=== PATIENT | male | born 1995 | race Two or more races ===

== ENCOUNTER 2022-03-17 23:36 | Emergency (ER) | payer MEDICAID ==
[~2022-03-17] VITALS: Ht 170.2 cm; Wt 114.0 kg
[2022-03-17] MEDS ORDERED: NO HOME MEDS (23:59)
[2022-03-18] MEDS ORDERED: ondansetron/PF 4mg/2ml inj IV ONE (00:05)
[2022-03-18] MEDS ORDERED: morphine 4 MG/ML inj SYRINge IV ONE ×2 (00:05→01:40)
[2022-03-18] MEDS ORDERED: normal saline 1000ML IV soln IVB ONE ×2 (00:05→02:40)
[2022-03-18 00:33] LABS: BASOPHILS # (AUTO) 0.1 X10'3 (0-0.2); BASOPHILS % (AUTO) 0.4 % (0-1); EOSINOPHILS # (AUTO) 0.2 X10'3 (0-0.9); HEMATOCRIT 41.9 % (42.0-52.0); LYMPHOCYTES # (AUTO) 3.6 X10'3 (1.1-4.8); LYMPHOCYTES % (AUTO) 24.3 % (21-51); MEAN CORPUSCULAR HEMOGLOBIN 29.1 PG (27.0-31.0); MEAN CORPUSCULAR HGB CONC 33.5 g/dL (33.0-36.5); MEAN CORPUSCULAR VOLUME 86.9 FL (78-98); MEAN PLATELET VOLUME 9.5 FL (7.4-10.4); MONOCYTES # (AUTO) 1.2 X10'3 (0-0.9); NEUTROPHILS # (AUTO) 9.9 X10'3 (1.8-7.7); NEUTROPHILS % (AUTO) 66.3 % (42-75); PLATELET COUNT 287 X10'3 (140-440); RED BLOOD COUNT 4.82 X10'6 (4.70-6.10); RED CELL DISTRIBUTION WIDTH 14.3 % (11.5-14.5); WHITE BLOOD COUNT 14.9 X10'3 (4.5-11.0)
[2022-03-18] MEDS ORDERED: iohexol 350MG/ML 100ml bottle IV ONE (00:37)
[2022-03-18 01:29] LABS: ALANINE AMINOTRANSFERASE 87 U/L (12-78); ALBUMIN/GLOBULIN RATIO 1.1 (1.1-1.5); ALKALINE PHOSPHATASE 128 IU/L (46-116); ANION GAP 12 (8-16); ASPARTATE AMINO TRANSFERASE 21 U/L (10-37); BILIRUBIN,TOTAL 0.4 MG/DL (0.1-1.0); BLOOD UREA NITROGEN 16 MG/DL (7-18); BUN/CREATININE RATIO 15.2 (5.4-32.0); CALCIUM 8.4 MG/DL (8.5-10.1); CHLORIDE 107 MMOL/L (99-107); CREATININE 1.05 MG/DL (0.60-1.10); GLUCOSE 105 MG/DL (70-104); LIPASE 105 U/L (73-393); POTASSIUM 3.8 MMOL/L (3.5-5.1); SODIUM 143 MMOL/L (135-145); TOTAL CARBON DIOXIDE 23.6 MMOL/L (24-32); TOTAL PROTEIN 7.8 G/DL (6.4-8.2); eGFR 85 ML/MIN
[2022-03-18] MEDS ORDERED: ketorolac tromethamine 15mg/ml inj. IV ONE (02:40)
[2022-03-18] MEDS ORDERED: ketorolac trometh. 30mg/ml inj. IV ONE (04:15)
[2022-03-18] MEDS ORDERED: tamsulosin 0.4mg capsule PO ONE (04:40)
[2022-03-18] MEDS ORDERED: tamsulosin 0.4mg capsule PO SCH ×2 (04:40→21:00)
[2022-03-18 05:08] LABS: CLARITY,URINE CLEAR (Clear); COLOR,URINE YELLOW (Yellow); GLUCOSE, URINE NEGATIVE (Neg); KETONES,URINE TRACE mg/dl (Neg); LEUKOCYTE ESTERASE ,URINE NEGATIVE (Neg); NITRITES, URINE NEGATIVE (Neg); OCCULT BLOOD,URINE MODERATE (Neg); PROTEIN,URINE NEGATIVE (Neg); UROBILINOGEN,URINE 0.2 E.U/dL (0.2-1.0)
[2022-03-18 05:18] LABS: UA COLLECTION TYPE CLN CATCH MIDSTREAM
[2022-03-18 05:36] LABS: BACTERIA,URINE NONE SEEN /HPF (Neg); RBC,URINE 0-2 /HPF (0-2); SQUAMOUS EPITHELIAL CELL,UR FEW /LPF (FEW); WBC,URINE 0-4 /HPF (0-4)
[2022-03-18 05:37] LABS: MUCUS STRANDS MODERATE /LPF (Neg)
[2022-03-18] MEDS ORDERED: HYDR-3965 PO ×2 (06:06)
[2022-03-18] MEDS ORDERED: FLO0.4C PO ×2 (06:06)
[2022-03-18 06:10] VITALS: BP 118/63
[2022-03-19] MEDS ORDERED: NO HOME MEDS (20:42)
== END 2022-03-18 06:12 | disposition home or self-care (01) ==
LOC: ER 23:38
DX: N20.0 Calculus of kidney (principal); F12.90 Cannabis use, unspecified, uncomplicated
CPT/HCPCS: 36415; 74177; 80053; 81001; 83690; 85025; 96361; 96374; 96375; 96376; 99285; J1885; J2270; J2405; J3490; J7030; Q9967

== ENCOUNTER 2022-03-19 10:01 | Inpatient (IN) | payer MEDICAID ==
[~2022-03-19] VITALS: Ht 172.7 cm; Wt 113.0 kg
[~2022-03-19 10:01] MED LIST: FLO0.4C PO; HYDR-3965 PO; NO HOME MEDS
[2022-03-19] MEDS ORDERED: morphine 4 MG/ML inj SYRINge IV ONE ×2 (11:35→12:13)
[2022-03-19] MEDS ORDERED: ondansetron/PF 4mg/2ml inj IV ONE (11:35)
[2022-03-19] MEDS ORDERED: normal saline 1000ml 1,000 ML IV ONE (11:35)
--- NOTE | 2022-03-19 12:05 | NUR ---
SPOKE WITH CROWN AND BRIDGE TECHNICIAN DERRICK REGARDING PT CONTINUES TO REPORT 10/10 PAIN WITH NO RELIEF. VERBAL ORDER RECEIVED FOR ADDITIONAL MORPHINE 4MG IV PUSH X1 DOSE. ORDER PLACED RECEIVED
[2022-03-19 12:45] LABS: RED BLOOD COUNT 4.89 X10'6 (4.70-6.10)
[2022-03-19 12:46] LABS: BASOPHILS % (AUTO) 0.2 % (0-1); EOSINOPHILS % (AUTO) 0.2 % (0-6); HEMATOCRIT 42.4 % (42.0-52.0); LYMPHOCYTES # (AUTO) 1.4 X10'3 (1.1-4.8); LYMPHOCYTES % (AUTO) 13.2 % (21-51); MEAN CORPUSCULAR HEMOGLOBIN 28.7 PG (27.0-31.0); MEAN CORPUSCULAR VOLUME 86.8 FL (78-98); MEAN PLATELET VOLUME 10.1 FL (7.4-10.4); MONOCYTES # (AUTO) 0.7 X10'3 (0-0.9); MONOCYTES % (AUTO) 6.6 % (2-12); NEUTROPHILS # (AUTO) 8.4 X10'3 (1.8-7.7); NEUTROPHILS % (AUTO) 79.8 % (42-75); PLATELET COUNT 270 X10'3 (140-440); RED CELL DISTRIBUTION WIDTH 14.7 % (11.5-14.5); WHITE BLOOD COUNT 10.6 X10'3 (4.5-11.0)
[2022-03-19 12:48] LABS: ALANINE AMINOTRANSFERASE 83 U/L (12-78); ALBUMIN 3.9 G/DL (3.4-5.0); ALKALINE PHOSPHATASE 131 IU/L (46-116); ANION GAP 16 (8-16); ASPARTATE AMINO TRANSFERASE 27 U/L (10-37); BILIRUBIN,TOTAL 0.7 MG/DL (0.1-1.0); BLOOD UREA NITROGEN 12 MG/DL (7-18); BUN/CREATININE RATIO 12.2 (5.4-32.0); CALCIUM 8.9 MG/DL (8.5-10.1); CHLORIDE 107 MMOL/L (99-107); CREATININE 0.98 MG/DL (0.60-1.10); GLUCOSE 96 MG/DL (70-104); POTASSIUM 3.7 MMOL/L (3.5-5.1); SODIUM 145 MMOL/L (135-145); TOTAL CARBON DIOXIDE 21.8 MMOL/L (24-32); eGFR > 90 ML/MIN
[2022-03-19] MEDS ORDERED: ketorolac trometh. 30mg/ml inj. IV ONE (13:10)
--- NOTE | 2022-03-19 13:49 | NUR ---
CALLED PT POLLY AT PT REQUEST [phone] FOR PT UPDATE. PT PHONE PUT ON IPHONE SALES ASSISTANT INSTITUTIONAL SALES PT PHONE IS AND HAS NO SALES ASSISTANT INSTITUTIONAL SALES
[2022-03-19] MEDS ORDERED: magnesium 4gm in 100ml NS 100 ML IV PRN (13:50)
[2022-03-19] MEDS ORDERED: magnesium Cl slow-release 64mg tablet PO PRN (13:50)
[2022-03-19] MEDS ORDERED: acetaminophen 325mg tablet PO PRN ×2 (13:50)
[2022-03-19] MEDS ORDERED: HYDROmorphone/PF 0.2 MG/ML SYRINGE IV PRN (13:50)
[2022-03-19] MEDS ORDERED: magnesium 2GM in 50ml NS 50 ML IV PRN (13:50)
[2022-03-19] MEDS ORDERED: potassium CL 10mEq/100ml bag 100 ML IV PRN (13:50)
[2022-03-19] MEDS ORDERED: mag hydrox/Alum hydrox/simeth 30ml oral suspension PO PRN (13:50)
[2022-03-19] MEDS ORDERED: HYDROcodone/acetaminophen 5mg/325mg tablet PO PRN (13:50)
[2022-03-19] MEDS ORDERED: POTASSIUM BICARB 20meq eff tab 20 MEQ TABLET.EFF PO PRN ×2 (13:50)
[2022-03-19] MEDS: ondansetron/PF 4mg/2ml inj IV PRN ×2 (14:18→19:59)
[2022-03-19] MEDS: CefTRIAXone 2gm/D5W 50ml BAG 50 ML IV SCH (14:18)
--- NOTE | 2022-03-19 14:59 | NUR ---
PAGER ID: [phone] MESSAGE: DAVID LOZOYA RM [id number] CAN PATIENT EAT/DRINK? JEREMIE JOHNSON RN
[2022-03-19] MEDS: normal saline 1000ml 1,000 ML IV SCH ×2 (15:00→22:25)
[2022-03-19] MEDS: HYDROmorphone inj. 0.5 MG/0.5 ML DISP.SYRIN IV PRN ×3 (15:56→22:21)
[2022-03-19 18:00] VITALS: BP 116/66
[2022-03-19] MEDS: HYDROcodone/acetaminophen 10/325mg tab PO PRN (19:03)
[2022-03-19] MEDS: heparin, porcine 5000 units/ml vial SQ SCH (19:03)
[2022-03-19] MEDS: K and/or MAG REPLACEMENT MC SCH (19:04)
--- NOTE | 2022-03-19 19:41 | NUR ---
Sent page to MD Marmolejo regarding patient c/o pain still not being controlled. Requesting for either frequency increased on current Dilaudid order or for a 1 Mg dose.
[2022-03-19] MEDS ORDERED: NO HOME MEDS (20:42)
[2022-03-19] MEDS ORDERED: temazepam 15mg capsule PO PRN (21:00)
--- NOTE | 2022-03-19 22:16 | NUR ---
Received call back from second Page to MD Marmolejo regarding patient c/o increase in pain. New order received to change current IV Dilaudid order from q4h PRN to q2h PRN for pain management.
[2022-03-20] VITALS (18 sets, daily range): BP systolic 122–156; BP diastolic 62–88
[2022-03-20] MEDS: HYDROmorphone inj. 0.5 MG/0.5 ML DISP.SYRIN IV PRN ×4 (00:20→22:37)
[2022-03-20] MEDS: ondansetron/PF 4mg/2ml inj IV PRN ×3 (02:34→16:03)
[2022-03-20 05:54] LABS: BASOPHILS % (AUTO) 0.2 % (0-1); EOSINOPHILS # (AUTO) 0.1 X10'3 (0-0.9); EOSINOPHILS % (AUTO) 0.6 % (0-6); HEMATOCRIT 34.1 % (42.0-52.0); HEMOGLOBIN 11.2 g/dl (14.0-17.9); LYMPHOCYTES # (AUTO) 2.2 X10'3 (1.1-4.8); LYMPHOCYTES % (AUTO) 24.1 % (21-51); MEAN CORPUSCULAR HEMOGLOBIN 28.8 PG (27.0-31.0); MEAN CORPUSCULAR HGB CONC 32.8 g/dL (33.0-36.5); MEAN CORPUSCULAR VOLUME 87.5 FL (78-98); MEAN PLATELET VOLUME 9.6 FL (7.4-10.4); MONOCYTES # (AUTO) 0.8 X10'3 (0-0.9); MONOCYTES % (AUTO) 8.9 % (2-12); NEUTROPHILS # (AUTO) 6.1 X10'3 (1.8-7.7); NEUTROPHILS % (AUTO) 66.2 % (42-75); PLATELET COUNT 196 X10'3 (140-440); RED BLOOD COUNT 3.89 X10'6 (4.70-6.10); RED CELL DISTRIBUTION WIDTH 14.3 % (11.5-14.5); WHITE BLOOD COUNT 9.2 X10'3 (4.5-11.0)
[2022-03-20 06:04] LABS: ALANINE AMINOTRANSFERASE 59 U/L (12-78); ALBUMIN 2.8 G/DL (3.4-5.0); ALBUMIN/GLOBULIN RATIO 0.8 (1.1-1.5); ALKALINE PHOSPHATASE 102 IU/L (46-116); ANION GAP 8 (8-16); ASPARTATE AMINO TRANSFERASE 17 U/L (10-37); BILIRUBIN,TOTAL 0.5 MG/DL (0.1-1.0); BLOOD UREA NITROGEN 11 MG/DL (7-18); BUN/CREATININE RATIO 10.7 (5.4-32.0); CALCIUM 7.6 MG/DL (8.5-10.1); CHLORIDE 108 MMOL/L (99-107); CREATININE 1.03 MG/DL (0.60-1.10); GLUCOSE 90 MG/DL (70-104); POTASSIUM 3.5 MMOL/L (3.5-5.1); SODIUM 140 MMOL/L (135-145); TOTAL CARBON DIOXIDE 24.1 MMOL/L (24-32); TOTAL PROTEIN 6.1 G/DL (6.4-8.2); eGFR 87 ML/MIN
--- NOTE | 2022-03-20 06:26 | NUR ---
Patient in room ORTHO 4024. I have received report from Gloria OCAMPO and had the opportunity to ask questions and assume patient care.
[2022-03-20] MEDS: CefTRIAXone 2gm/D5W 50ml BAG 50 ML IV SCH (06:52)
[2022-03-20] MEDS: HYDROcodone/acetaminophen 10/325mg tab PO PRN (06:52)
[2022-03-20] MEDS: normal saline 1000ml 1,000 ML IV SCH ×2 (06:53→11:21)
[2022-03-20] MEDS: K and/or MAG REPLACEMENT MC SCH ×2 (08:00→20:00)
[2022-03-20] MEDS: heparin, porcine 5000 units/ml vial SQ SCH ×2 (08:00→21:11)
[2022-03-20] MEDS ORDERED: HYDROmorphone 1 mg/ml syringe IV PRN (08:05)
[2022-03-20] MEDS: dextrose 5%-normal saline 1,000 ML IV SCH (09:20)
[2022-03-20] MEDS: HYDROmorphone 1 mg/ml syringe IV PRN ×2 (11:33→13:44)
[2022-03-20] MEDS: metoclopramide 5 mg/ml inj IV PRN (13:44)
--- NOTE | 2022-03-20 16:26 | NUR ---
PATIENT 05/08 PAIN dR Massey AWARE , MEDS CHANGED APPROPRIATELY,see EMAR. awaiting to be seen by Urologist Dr St . Patient vomited x3 reglan and zofran ordered both given alternatively, mod results. will continue to monitor
--- NOTE | 2022-03-20 16:46 | NUR ---
order given for Protonix IV. for acid reflux.
[2022-03-20] MEDS ORDERED: iohexol 300 MG/1 ML 10ml vial ONE (17:33)
[2022-03-20] MEDS: pantoprazole 40MG/NS 100ML BAG 100 ML IV SCH ×2 (17:45→21:05)
[2022-03-20] MEDS ORDERED: morphine 4 MG/ML inj SYRINge IV PRN (17:50)
[2022-03-20] MEDS ORDERED: morphine 2 MG/ML inj. syringe IV PRN (17:50)
[2022-03-20] MEDS ORDERED: ringers solution, lacted 1,000 ML IV SCH (17:50)
[2022-03-20] MEDS ORDERED: ondansetron/PF 4mg/2ml inj IV PRN (17:50)
[2022-03-20] MEDS ORDERED: proCHLORperazine 10 MG/2 ml inj IV PRN (17:50)
[2022-03-20] MEDS ORDERED: meperidine/PF 25mg/ml syringe IV PRN ×3 (17:50)
--- NOTE | 2022-03-20 18:29 | NUR ---
OR called for patient to go for stent placement with Dr Giron. Pre op check list completed Report given to Jenna OCAMPO
--- NOTE | 2022-03-20 18:30 | NUR ---
Patient in room ORTHO 4024. I have received report from Krystina OCAMPO and had the opportunity to ask questions and assume patient care.
[2022-03-20] MEDS ORDERED: ondansetron/PF 4mg/2ml inj ONE (18:45)
[2022-03-20] MEDS ORDERED: dexamethasone sod phosphate 4mg/ml inj. ONE (18:45)
[2022-03-20] MEDS ORDERED: propofol inj 20 ML IV ONE (18:47)
[2022-03-20] MEDS ORDERED: LIDOcaine 2% (20mg/ml) 5ml vial ONE (18:47)
[2022-03-20] MEDS ORDERED: fentaNYL/PF 50MCG/1 ML 2ML syringe ONE (18:48)
[2022-03-20] MEDS ORDERED: midazolam 1 mg/ML 2ml injection ONE (19:01)
--- NOTE | 2022-03-20 19:08 | NUR ---
I agree with Sudheer KONG charting
--- NOTE | 2022-03-20 19:20 | NUR ---
Received from OR via HOSPITAL BED, accompanied by Anesthesiologist DR NOVAK and report given by Anesthesiolgist. PT IS AWAKE ANS ANSWERING QUESTIONS APPROPRIATELY AND ABLE TO EATON. PT PLACED ON BEDSIDE MONITOR, VSS. PT IS C/O SOME NAUSEA, WILL SEE WHAT MEDS ARE AVAILABLE AND TREAT. PT IS ABLE TO USE URINAL, SOME HEMATURIA IS NOTED. PT STATES RELIEF OF PAIN POST PROCEEDURE, NO PAIN MENS ARE REQUIRED AT THIS TIME. WILL CONTINUE TO ASSESS.
--- NOTE | 2022-03-20 20:00 | NUR ---
REceived report from level vial curvature gauger Sheradah. Patient to follow shortly after she medicates for pain.,
--- NOTE | 2022-03-20 20:06 | NUR ---
CARE OF PATIENT AND REPORT HAS BEEN CALLED. ALL QUESTIONS ANSWERED TO ACCEPTING RN. PATIENT HAS MET ALL CRITERIA FOR TRANSFER TO THE SURGICAL ORTHO FLOOR. VSS. BED LOW, CALL LIGHT PRESENT AND 2 RAILS UP. KAYLEIGH RN PRESENT TO ACCEPT
--- NOTE | 2022-03-20 20:20 | NUR ---
Patient arrived back from surgery. Alert and currently denies having any nausea or pain at this time. Post op VS initiated.
[2022-03-21] MEDS: dextrose 5%-normal saline 1,000 ML IV SCH ×3 (00:45→08:45)
[2022-03-21 02:00] VITALS: BP 133/79
[2022-03-21] MEDS: HYDROcodone/acetaminophen 10/325mg tab PO PRN (02:29)
[2022-03-21 05:54] LABS: BASOPHILS % (AUTO) 0 % (0-1); EOSINOPHILS % (AUTO) 0 % (0-6); HEMATOCRIT 35.9 % (42.0-52.0); HEMOGLOBIN 12.1 g/dl (14.0-17.9); LYMPHOCYTES # (AUTO) 0.6 X10'3 (1.1-4.8); LYMPHOCYTES % (AUTO) 8.7 % (21-51); MEAN CORPUSCULAR HEMOGLOBIN 28.9 PG (27.0-31.0); MEAN CORPUSCULAR HGB CONC 33.6 g/dL (33.0-36.5); MEAN CORPUSCULAR VOLUME 86.2 FL (78-98); MEAN PLATELET VOLUME 9.5 FL (7.4-10.4); MONOCYTES # (AUTO) 0.1 X10'3 (0-0.9); MONOCYTES % (AUTO) 1.4 % (2-12); NEUTROPHILS # (AUTO) 6.6 X10'3 (1.8-7.7); NEUTROPHILS % (AUTO) 89.9 % (42-75); PLATELET COUNT 219 X10'3 (140-440); RED BLOOD COUNT 4.17 X10'6 (4.70-6.10); RED CELL DISTRIBUTION WIDTH 13.9 % (11.5-14.5); WHITE BLOOD COUNT 7.4 X10'3 (4.5-11.0)
[2022-03-21 06:00] VITALS: BP 105/100
[2022-03-21 06:08] LABS: ALANINE AMINOTRANSFERASE 64 U/L (12-78); ALBUMIN 2.9 G/DL (3.4-5.0); ALBUMIN/GLOBULIN RATIO 0.8 (1.1-1.5); ALKALINE PHOSPHATASE 114 IU/L (46-116); ANION GAP 9 (8-16); ASPARTATE AMINO TRANSFERASE 15 U/L (10-37); BILIRUBIN,TOTAL 0.4 MG/DL (0.1-1.0); BLOOD UREA NITROGEN 11 MG/DL (7-18); BUN/CREATININE RATIO 12.4 (5.4-32.0); CALCIUM 8.2 MG/DL (8.5-10.1); CHLORIDE 107 MMOL/L (99-107); CREATININE 0.89 MG/DL (0.60-1.10); GLUCOSE 158 MG/DL (70-104); POTASSIUM 3.6 MMOL/L (3.5-5.1); SODIUM 140 MMOL/L (135-145); TOTAL CARBON DIOXIDE 24.2 MMOL/L (24-32); TOTAL PROTEIN 6.7 G/DL (6.4-8.2); eGFR > 90 ML/MIN
--- NOTE | 2022-03-21 06:45 | NUR ---
Patient report given to Gladis OCAMPO
[2022-03-21] MEDS: pantoprazole 40MG/NS 100ML BAG 100 ML IV SCH (07:58)
[2022-03-21] MEDS: heparin, porcine 5000 units/ml vial SQ SCH (08:00)
[2022-03-21] MEDS: K and/or MAG REPLACEMENT MC SCH (08:00)
--- NOTE | 2022-03-21 08:13 | NUR ---
PAGER ID: [phone] MESSAGE: [phone] Rufino request reg diet and mom for constipation, hoping to dc home today. Thank you, [phone]
[2022-03-21] MEDS: metoclopramide 5 mg/ml inj IV PRN (08:21)
[2022-03-21] MEDS: CefTRIAXone 2gm/D5W 50ml BAG 50 ML IV SCH (08:26)
[2022-03-21 10:00] VITALS: BP 118/67
[2022-03-21] MEDS ORDERED: HYDR-3965 PO (10:16)
[2022-03-21] MEDS ORDERED: DOCU-148 PO (10:20)
[2022-03-21] MEDS ORDERED: OMEP20CA15 PO (10:20)
[2022-03-21] MEDS ORDERED: ONDA4TAB12 PO (10:20)
== END 2022-03-21 12:15 | disposition home or self-care (01) | DRG 465 ==
LOC: ER 10:02 → ED HOLD 13:52 → EDBEDREQ 14:15 → ORTHO 4S 14:45
PROVIDERS: ADMIT Internal Medicine; ATTEND Internal Medicine
PROC: BT1D1ZZ Fluoroscopy of Right Kidney, Ureter and Bladder using Low Osmolar Contrast (ICD-10-PCS; 2022-03-20)
PROC: 0T768DZ Dilation of Right Ureter with Intraluminal Device, Via Natural or Artificial Opening Endoscopic (ICD-10-PCS; principal; 2022-03-20 18:43)
DX: N13.2 Hydronephrosis with renal and ureteral calculous obstruction (principal); E66.01 Morbid (severe) obesity due to excess calories; F12.90 Cannabis use, unspecified, uncomplicated; K59.00 Constipation, unspecified; Z20.822 Contact with and (suspected) exposure to COVID-19; F17.210 Nicotine dependence, cigarettes, uncomplicated; Z87.442 Personal history of urinary calculi; Z68.37 Body mass index [BMI] 37.0-37.9, adult
CPT/HCPCS: 36415; 76770; 80053; 83605; 85025; 87040; 87811; 96374; 96375; 99285; A4618; C1758; C1769; C2617; C9113; G0378; J0696; J0780; J1100; J1170; J1644; J1885; J2250; J2270; J2405; J2704; J2765; J3010; J3490; J7030; J7042; J7120; Q9967

== ENCOUNTER 2022-10-05 11:50 | Emergency (ER) | payer MEDICAID ==
[~2022-10-05] VITALS: Ht 172.7 cm; Wt 100.0 kg
[~2022-10-05 11:50] MED LIST changes: +DOCU-148 PO; -FLO0.4C PO; -HYDR-3965 PO; -NO HOME MEDS; +OMEP20CA15 PO; +ONDA4TAB12 PO
[2022-10-05] MEDS ORDERED: ketorolac trometh. 30mg/ml inj. IV ONE (12:05)
[2022-10-05] MEDS ORDERED: normal saline 1000ML IV soln IVB ONE (12:05)
[2022-10-05] MEDS ORDERED: ondansetron/PF 4mg/2ml inj IV ONE ×2 (12:05→14:30)
[2022-10-05 12:26] LABS: BASOPHILS % (AUTO) 0.2 % (0-1); EOSINOPHILS % (AUTO) 0.1 % (0-6); HEMATOCRIT 40.5 % (42.0-52.0); HEMOGLOBIN 13.5 g/dl (14.0-17.9); LYMPHOCYTES % (AUTO) 17.1 % (21-51); MEAN CORPUSCULAR HGB CONC 33.4 g/dL (33.0-36.5); MEAN CORPUSCULAR VOLUME 86.9 FL (78-98); MONOCYTES # (AUTO) 0.8 X10'3 (0-0.9); MONOCYTES % (AUTO) 6.7 % (2-12); NEUTROPHILS # (AUTO) 8.8 X10'3 (1.8-7.7); NEUTROPHILS % (AUTO) 75.9 % (42-75); PLATELET COUNT 373 X10'3 (140-440); RED BLOOD COUNT 4.66 X10'6 (4.70-6.10); RED CELL DISTRIBUTION WIDTH 14.8 % (11.5-14.5); WHITE BLOOD COUNT 11.6 X10'3 (4.5-11.0)
[2022-10-05 12:39] LABS: ALANINE AMINOTRANSFERASE 77 U/L (12-78); ALBUMIN 4.6 G/DL (3.4-5.0); ALBUMIN/GLOBULIN RATIO 1.2 (1.1-1.5); ALKALINE PHOSPHATASE 147 IU/L (46-116); ANION GAP 11 (8-16); ASPARTATE AMINO TRANSFERASE 23 U/L (10-37); BILIRUBIN,TOTAL 0.7 MG/DL (0.1-1.0); BLOOD UREA NITROGEN 11 MG/DL (7-18); BUN/CREATININE RATIO 13.3 (5.4-32.0); CALCIUM 9.3 MG/DL (8.5-10.1); CHLORIDE 105 MMOL/L (99-107); CREATININE 0.83 MG/DL (0.60-1.10); GLUCOSE 101 MG/DL (70-104); POTASSIUM 3.7 MMOL/L (3.5-5.1); SODIUM 140 MMOL/L (135-145); TOTAL CARBON DIOXIDE 24.2 MMOL/L (24-32); TOTAL PROTEIN 8.5 G/DL (6.4-8.2); eGFR > 90 ML/MIN
[2022-10-05] MEDS: morphine 4 MG/ML inj SYRINge IV PRN ×2 (12:49→13:30)
[2022-10-05] MEDS ORDERED: oxyCODONE/APAP 5-325mg tablet PO ONE (13:10)
[2022-10-05 14:17] LABS: CLARITY,URINE CLOUDY (Clear); COLOR,URINE BROWN (Yellow); GLUCOSE, URINE NEGATIVE (Neg); KETONES,URINE >=80 mg/dl (Neg); LEUKOCYTE ESTERASE ,URINE TRACE (Neg); NITRITES, URINE NEGATIVE (Neg); OCCULT BLOOD,URINE LARGE (Neg); PROTEIN,URINE 100 mg/dl (Neg)
[2022-10-05 14:45] LABS: UA COLLECTION TYPE VOIDED
[2022-10-05 14:46] LABS: MUCUS STRANDS MANY /LPF (Neg); SQUAMOUS EPITHELIAL CELL,UR FEW /LPF (FEW)
[2022-10-05 14:47] LABS: BACTERIA,URINE FEW /HPF (Neg); RBC,URINE TNTC /HPF (0-2)
[2022-10-05 14:48] LABS: WBC,URINE 0-4 /HPF (0-4)
[2022-10-05] MEDS ORDERED: tamsulosin 0.4mg capsule PO SCH ×2 (14:50→21:00)
[2022-10-05] MEDS ORDERED: OXYC-145 PO (15:12)
[2022-10-05] MEDS ORDERED: NAPR-56 PO (15:12)
[2022-10-05] MEDS ORDERED: FLO0.4C PO (15:12)
[2022-10-05] MEDS ORDERED: CEPH250T PO (15:12)
[2022-10-05] MEDS ORDERED: ONDA4TAB12 PO (15:12)
[2022-10-05 15:36] VITALS: BP 112/72
== END 2022-10-05 15:30 | disposition home or self-care (01) ==
LOC: ER 11:50
DX: N23 Unspecified renal colic (principal); N20.0 Calculus of kidney; F12.10 Cannabis abuse, uncomplicated; Z79.899 Other long term (current) drug therapy
CPT/HCPCS: 36415; 74176; 80053; 81001; 85025; 87088; 96361; 96374; 96375; 96376; 99285; J1885; J2270; J2405; J7030

== ENCOUNTER 2022-12-11 20:08 | Emergency (ER) | payer MEDICAID ==
[~2022-12-11] VITALS: Ht 175.3 cm; Wt 106.8 kg
[~2022-12-11 20:08] MED LIST changes: +OXYC-145 PO
[2022-12-11] MEDS ORDERED: bacitracin 15gm ointment TP ONE (20:40)
[2022-12-11] MEDS ORDERED: LIDOcaine 1% W/epiNEPHrine 1:100,000 20ml vial IJ ONE (20:45)
[2022-12-11] MEDS ORDERED: HYDROcodone/acetaminophen 10/325mg tab PO ONE (21:55)
[2022-12-11] MEDS ORDERED: ondansetron 4mg rapidly disintigrating tab PO ONE (21:55)
[2022-12-11 22:46] VITALS: BP 112/77
== END 2022-12-11 23:35 | disposition home or self-care (01) ==
LOC: ER 20:08
DX: S01.01XA Laceration without foreign body of scalp, initial encounter (principal); F17.200 Nicotine dependence, unspecified, uncomplicated; Z87.442 Personal history of urinary calculi; F12.10 Cannabis abuse, uncomplicated; W07.XXXA Fall from chair, initial encounter; Y93.89 Activity, other specified; Y92.89 Other specified places as the place of occurrence of the external cause; Y99.8 Other external cause status; Z79.899 Other long term (current) drug therapy
CPT/HCPCS: 12001; 70450; 70486; 99284; J3490; A6449

== ENCOUNTER 2022-12-22 12:24 | Emergency (ER) | payer MEDICAID ==
[~2022-12-22] VITALS: Ht 172.7 cm; Wt 109.0 kg
[2022-12-22 12:37] VITALS: BP 125/81
== END 2022-12-22 13:44 | disposition home or self-care (01) ==
LOC: ER 12:24
DX: S01.91XD Laceration without foreign body of unspecified part of head, subsequent encounter (principal); F12.90 Cannabis use, unspecified, uncomplicated; X58.XXXD Exposure to other specified factors, subsequent encounter
CPT/HCPCS: 99281

== ENCOUNTER 2023-05-03 12:47 | Emergency (ER) | payer MEDICAID ==
[~2023-05-03] VITALS: Ht 172.7 cm; Wt 100.0 kg
[2023-05-03] MEDS ORDERED: aspirin 81mg tab.chew PO ONE (13:30)
[2023-05-03 13:41] LABS: BASOPHILS % (AUTO) 0.4 % (0-1); EOSINOPHILS % (AUTO) 0.2 % (0-6); HEMATOCRIT 42.6 % (42.0-52.0); HEMOGLOBIN 13.7 g/dl (14.0-17.9); LYMPHOCYTES # (AUTO) 2.5 X10'3 (1.1-4.8); LYMPHOCYTES % (AUTO) 18.9 % (21-51); MEAN CORPUSCULAR HEMOGLOBIN 28.6 PG (27.0-31.0); MEAN CORPUSCULAR HGB CONC 32.3 g/dL (33.0-36.5); MEAN CORPUSCULAR VOLUME 88.6 FL (78-98); MONOCYTES # (AUTO) 0.9 X10'3 (0-0.9); MONOCYTES % (AUTO) 6.8 % (2-12); NEUTROPHILS # (AUTO) 9.7 X10'3 (1.8-7.7); NEUTROPHILS % (AUTO) 73.7 % (42-75); PLATELET COUNT 396 X10'3 (140-440); RED BLOOD COUNT 4.81 X10'6 (4.70-6.10); WHITE BLOOD COUNT 13.1 X10'3 (4.5-11.0)
[2023-05-03] MEDS ORDERED: nitroGLYCERIN 0.4mg SUBLingual tab SL PRN (13:50)
[2023-05-03] MEDS ORDERED: morphine 2 MG/ML inj. syringe IV ONE (13:50)
[2023-05-03] MEDS ORDERED: mag hydrox/Alum hydrox/simeth 30ml oral suspension PO ONE (13:50)
[2023-05-03] MEDS ORDERED: LIDOcaine Viscous 15ml cup MM PRN (13:50)
[2023-05-03] MEDS ORDERED: LORazepam 2 mg/ml vial IV ONE (13:55)
[2023-05-03 13:58] LABS: D-DIMER < 0.19 MG/L FEU (0-0.50)
[2023-05-03 14:26] LABS: ALANINE AMINOTRANSFERASE 72 U/L (12-78); ALKALINE PHOSPHATASE 114 IU/L (46-116); ANION GAP 14 (8-16); ASPARTATE AMINO TRANSFERASE 20 U/L (10-37); BILIRUBIN,TOTAL 0.5 MG/DL (0.1-1.0); BLOOD UREA NITROGEN 13 MG/DL (7-18); BUN/CREATININE RATIO 15.5 (10.0-20.0); CALCIUM 9.5 MG/DL (8.5-10.1); CHLORIDE 105 MMOL/L (99-107); CREATININE 0.84 MG/DL (0.60-1.10); GLUCOSE 100 MG/DL (70-104); POTASSIUM 3.5 MMOL/L (3.5-5.1); SODIUM 142 MMOL/L (135-145); TOTAL CARBON DIOXIDE 23.2 MMOL/L (24-32); TOTAL PROTEIN 8.2 G/DL (6.4-8.2); eCRCL 127 ML/MIN; eGFR > 90 ML/MIN
[2023-05-03 14:34] LABS: MAGNESIUM 2.3 MG/DL (1.5-2.4); PRO BRAIN NATRIURETIC PEPTIDE 103 PG/ML (0-125)
[2023-05-03] MEDS ORDERED: morphine 4 MG/ML inj SYRINge IV ONE (15:10)
--- NOTE | 2023-05-03 15:17 | NUR ---
Pain now improved, mild left chest notifying ORDER PICKER. Pt. on cell phone testing, appears more relazed. 114/81, 87 HR, 98 RA, resp regular 20.
[2023-05-03] MEDS ORDERED: PANT20TA2 PO (15:35)
[2023-05-03] MEDS ORDERED: ondansetron/PF 4mg/2ml inj IV ONE (15:40)
[2023-05-03] MEDS ORDERED: HYDR-3686 PO (15:42)
--- NOTE | 2023-05-03 15:55 | NUR ---
ARMAMENT REPAIRER ordered more morphine and zofran at the time of d/c, pt. instructed not to drive, smoking cessation discussed and d/c info. Pt. verbalized understanding. Has referrals for PCP, says goes to [facility] as primary. Watching pt. for 15 min after med. sinus tach on monitor now 103. No chest pain at this time, no N/V after morpine.
--- NOTE | 2023-05-03 16:25 | NUR ---
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
--- NOTE | 2023-05-03 16:25 | NUR ---
Family ddriving pt. home, steady gait, no SOB, no nausea.
[2023-05-03 16:26] VITALS: BP 127/89; PULSE 101; RESP 20; TEMP 98.6; O2SAT 98
== END 2023-05-03 16:33 | disposition home or self-care (01) ==
LOC: ER 12:48
DX: R07.9 Chest pain, unspecified (principal); R61 Generalized hyperhidrosis
CPT/HCPCS: 36415; 71045; 80053; 82948; 83690; 83735; 83880; 84484; 85025; 85379; 93005; 96374; 96375; 96376; 99285; J2060; J2270; J2405